=== PATIENT | female | born 1980 | race Two or more races ===

== ENCOUNTER 2024-11-19 11:00 | Emergency (ER) | payer OTHER ==
[~2024-11-19] VITALS: Ht 160 cm; Wt 74.8 kg
[2024-11-19 11:22] VITALS: TEMP 97.9
[2024-11-19] MEDS ORDERED: KETOROLAC TROMETHAMINE 15 MG/ML VIAL ONE (12:04)
[2024-11-19] MEDS ORDERED: CEPHALEXIN MONOHYDRATE 500 MG CAPSULE PO ONE (12:04)
[2024-11-19] MEDS: CEPHALEXIN MONOHYDRATE 500 MG CAPSULE PO ONE (12:09)
[2024-11-19] MEDS: KETOROLAC TROMETHAMINE 15 MG/ML VIAL IM ONE (12:09)
[2024-11-19] MEDS ORDERED: KETO10TA2 PO (12:10)
[2024-11-19] MEDS ORDERED: CEPH-570 PO (12:10)
[2024-11-19 12:48] VITALS: BP 120/77; O2SAT 99
== END 2024-11-19 12:32 | disposition home or self-care (01) ==
LOC: ER 11:07
DX: L03.317 Cellulitis of buttock (principal); R50.9 Fever, unspecified; Z98.84 Bariatric surgery status
CPT/HCPCS: 99284; 96372; J1885